=== PATIENT | female | born 1995 | race Caucasian/White ===

== ENCOUNTER 2018-06-05 01:03 | Emergency (ER) | payer MEDICAID ==
[~2018-06-05] VITALS: Ht 167.6 cm; Wt 70.0 kg
[2018-06-05 05:33] VITALS: BP 127/72
== END 2018-06-05 05:38 | disposition home or self-care (01) ==
LOC: ER 01:34
DX: S92.512A Displaced fracture of proximal phalanx of left lesser toe(s), initial encounter for closed fracture (principal); E11.649 Type 2 diabetes mellitus with hypoglycemia without coma; Z87.440 Personal history of urinary (tract) infections; Z79.4 Long term (current) use of insulin; X58.XXXA Exposure to other specified factors, initial encounter; Y93.89 Activity, other specified; Y92.89 Other specified places as the place of occurrence of the external cause; Y99.8 Other external cause status
CPT/HCPCS: 29515; 73630; 81025; 82962; 99283

== ENCOUNTER 2021-05-25 00:25 | Emergency (ER) | payer MEDICAID, OTHER ==
[~2021-05-25] VITALS: Ht 165.1 cm; Wt 80.0 kg
[2021-05-25 00:35] VITALS: BP 113/70
[2021-05-25] MEDS ORDERED: MAGNESIUM/ALUMINUM HYDROXIDE/SIMETHICONE 30ML UDC PO STA (00:45)
[2021-05-25] MEDS ORDERED: VISCOUS LIDOCAINE 2% 15 ML UDC PO STA (00:45)
[2021-05-25 01:07] LABS: BASOPHILS % 0.3 % (0.0-2.0); EOSINOPHILS % 0.7 % (0.0-5.0); HEMATOCRIT. 50.1 % (36.0-48.0); HEMOGLOBIN. 16.4 g/dL (12.0-16.0); LYMPHOCYTES % 14.4 % (20.0-50.0); MEAN CORPUSCULAR HEMOGLOBIN 27.9 pg (28.0-32.0); MEAN CORPUSCULAR VOLUME 85.2 fL (81.0-99.0); MEAN PLATELET VOLUME 7.7 fl (7.4-10.4); MONOCYTES % 4.7 % (2.0-8.0); NEUTROPHILS % 79.9 % (40.0-76.0); PLATELET 347 x1000/uL (130-400); RED BLOOD CELL COUNT 5.88 mill/uL (4.2-5.4); RED CELL DISTRIBUTION WIDTH 14.8 % (11.6-14.6)
[2021-05-25 01:12] LABS: CHLORIDE 103 mEq/L (98-107)
[2021-05-25 01:15] LABS: ETHANOL BLOOD < 10 mg/dL
[2021-05-25] MEDS ORDERED: ONDANSETRON 4MG ODT PO ONE (03:30)
[2021-05-25 03:47] LABS: CLARITY URINE CLEAR (CLEAR); KETONES URINE TRACE (NEGATIVE); LEUKOCYTE ESTERASE URINE NEGATIVE (NEGATIVE); NITRITE URINE NEGATIVE (NEGATIVE); OCCULT BLOOD URINE 3+ (NEGATIVE); PH URINE 5.5 (4.5-8.0); PROTEIN URINE TRACE (NEGATIVE); SPECIFIC GRAVITY URINE 1.041 (1.005-1.030); UROBILINOGEN URINE 0.2 E.U./dL (0.2-1.0)
[2021-05-25] MEDS ORDERED: ONDA4TAB5 MT (06:43)
[2021-05-25] MEDS ORDERED: OMEP40CA20 MT (06:43)
== END 2021-05-25 06:55 | disposition home or self-care (01) ==
LOC: ER 00:25
DX: R10.9 Unspecified abdominal pain (principal); E11.9 Type 2 diabetes mellitus without complications
CPT/HCPCS: 36415; 74176; 76705; 80053; 80320; 81003; 83690; 85025; 99284; Q0162; G0480

== ENCOUNTER 2024-08-10 12:40 | Emergency (ER) | payer OTHER, MEDICAID ==
[~2024-08-10] VITALS: Ht 157.5 cm; Wt 95.0 kg
[~2024-08-10 12:40] MED LIST: OMEP40CA20 MT; ONDA4TAB5 MT
[2024-08-10 12:41] VITALS: O2SAT 100
[2024-08-10 18:23] VITALS: BP 124/71; PULSE 98; RESP 18; TEMP 37; O2SAT 100
== END 2024-08-10 18:24 | disposition home or self-care (01) ==
LOC: ER 12:40
DX: R07.89 Other chest pain (principal); Z79.899 Other long term (current) drug therapy; E11.9 Type 2 diabetes mellitus without complications; V43.52XA Car driver injured in collision with other type car in traffic accident, initial encounter; Y93.89 Activity, other specified; Y92.410 Unspecified street and highway as the place of occurrence of the external cause; Y99.8 Other external cause status
CPT/HCPCS: 71045; 99283